=== PATIENT | male | born 1955 | race Hispanic/Latino ===

== ENCOUNTER 2021-08-16 08:58 | Outpatient (CLI) | payer BC, MEDICARE | END 2021-08-16 08:59 | disposition home or self-care (01) | LOC: CSHWCC 08:58 | PROVIDERS: ATTEND Nurse Practitioner Family | DX: E11.621 Type 2 diabetes mellitus with foot ulcer (principal); L97.412 Non-pressure chronic ulcer of right heel and midfoot with fat layer exposed; L97.416 Non-pressure chronic ulcer of right heel and midfoot with bone involvement without evidence of necrosis | CPT/HCPCS: 11043; 97605; 99204; G0463 ==

== ENCOUNTER 2021-08-19 08:37 | Outpatient (CLI) | payer BC, MEDICARE | END 2021-08-19 08:38 | disposition home or self-care (01) | LOC: CSHWCC 08:37 | PROVIDERS: ATTEND Nurse Practitioner Family | DX: E11.621 Type 2 diabetes mellitus with foot ulcer (principal); L97.412 Non-pressure chronic ulcer of right heel and midfoot with fat layer exposed; L97.416 Non-pressure chronic ulcer of right heel and midfoot with bone involvement without evidence of necrosis; R60.0 Localized edema ==

== ENCOUNTER 2021-08-23 08:05 | Outpatient (CLI) | payer BC, MEDICARE | END 2021-08-23 08:06 | disposition home or self-care (01) | LOC: CSHWCC 08:05 | PROVIDERS: ATTEND Nurse Practitioner Family | DX: E11.621 Type 2 diabetes mellitus with foot ulcer (principal); L97.412 Non-pressure chronic ulcer of right heel and midfoot with fat layer exposed; L97.416 Non-pressure chronic ulcer of right heel and midfoot with bone involvement without evidence of necrosis; R60.0 Localized edema | CPT/HCPCS: 97605 ==

== ENCOUNTER 2021-08-26 10:33 | Outpatient (CLI) | payer BC, MEDICARE | END 2021-08-26 10:34 | disposition home or self-care (01) | LOC: CSHWCC 10:33 | PROVIDERS: ATTEND Nurse Practitioner Family | DX: E11.621 Type 2 diabetes mellitus with foot ulcer (principal); L97.412 Non-pressure chronic ulcer of right heel and midfoot with fat layer exposed; L97.416 Non-pressure chronic ulcer of right heel and midfoot with bone involvement without evidence of necrosis | CPT/HCPCS: 11042; 97605 ==

== ENCOUNTER 2021-08-30 10:18 | Outpatient (CLI) | payer BC, MEDICARE | END 2021-08-30 10:19 | disposition home or self-care (01) | LOC: CSHWCC 10:18 | PROVIDERS: ATTEND Nurse Practitioner Family | DX: E11.621 Type 2 diabetes mellitus with foot ulcer (principal); L97.412 Non-pressure chronic ulcer of right heel and midfoot with fat layer exposed; R60.0 Localized edema | CPT/HCPCS: 97605; 99212; G0463 ==

== ENCOUNTER 2021-08-31 10:15 | Outpatient (CLI) | payer BC, MEDICARE | END 2021-08-31 10:16 | disposition home or self-care (01) | LOC: CSHWCC 10:15 | PROVIDERS: ATTEND Nurse Practitioner Family | DX: E11.621 Type 2 diabetes mellitus with foot ulcer (principal); L97.412 Non-pressure chronic ulcer of right heel and midfoot with fat layer exposed; L97.416 Non-pressure chronic ulcer of right heel and midfoot with bone involvement without evidence of necrosis | CPT/HCPCS: 36416; G0277 ==

== ENCOUNTER 2021-09-01 12:57 | Outpatient (CLI) | payer BC, MEDICARE | END 2021-09-01 12:58 | disposition home or self-care (01) | LOC: CSHWCC 12:57 | PROVIDERS: ATTEND Nurse Practitioner Family | DX: E11.621 Type 2 diabetes mellitus with foot ulcer (principal); L97.416 Non-pressure chronic ulcer of right heel and midfoot with bone involvement without evidence of necrosis | CPT/HCPCS: 36416 ==

== ENCOUNTER 2021-09-02 08:08 | Outpatient (CLI) | payer BC, MEDICARE | END 2021-09-02 08:09 | disposition home or self-care (01) | LOC: CSHWCC 08:08 | PROVIDERS: ATTEND Nurse Practitioner Family | DX: E11.621 Type 2 diabetes mellitus with foot ulcer (principal); L97.416 Non-pressure chronic ulcer of right heel and midfoot with bone involvement without evidence of necrosis | CPT/HCPCS: 36416 ==

== ENCOUNTER 2021-09-03 11:00 | Outpatient (CLI) | payer BC, MEDICARE | END 2021-09-03 11:01 | disposition home or self-care (01) | LOC: CSHWCC 11:00 | PROVIDERS: ATTEND Nurse Practitioner Family | DX: E11.621 Type 2 diabetes mellitus with foot ulcer (principal); L97.416 Non-pressure chronic ulcer of right heel and midfoot with bone involvement without evidence of necrosis | CPT/HCPCS: 36416; G0277 ==

== ENCOUNTER 2021-09-06 08:12 | Outpatient (CLI) | payer BC, MEDICARE | END 2021-09-06 08:13 | disposition home or self-care (01) | LOC: CSHWCC 08:12 | PROVIDERS: ATTEND Nurse Practitioner Family | DX: E11.621 Type 2 diabetes mellitus with foot ulcer (principal); L97.416 Non-pressure chronic ulcer of right heel and midfoot with bone involvement without evidence of necrosis; L97.412 Non-pressure chronic ulcer of right heel and midfoot with fat layer exposed; R60.0 Localized edema | CPT/HCPCS: 11042; 36416; 97605; G0277 ==

== ENCOUNTER 2021-09-07 13:30 | Outpatient (CLI) | payer BC, MEDICARE | END 2021-09-07 13:31 | disposition home or self-care (01) | LOC: CSHWCC 13:30 | PROVIDERS: ATTEND Nurse Practitioner Family | DX: E11.621 Type 2 diabetes mellitus with foot ulcer (principal); L97.412 Non-pressure chronic ulcer of right heel and midfoot with fat layer exposed; L97.416 Non-pressure chronic ulcer of right heel and midfoot with bone involvement without evidence of necrosis; R60.0 Localized edema | CPT/HCPCS: 36416; G0277 ==

== ENCOUNTER 2021-09-08 08:09 | Outpatient (CLI) | payer BC, MEDICARE | END 2021-09-08 08:10 | disposition home or self-care (01) | LOC: CSHWCC 08:09 | PROVIDERS: ATTEND Nurse Practitioner Family | DX: E11.621 Type 2 diabetes mellitus with foot ulcer (principal); L97.416 Non-pressure chronic ulcer of right heel and midfoot with bone involvement without evidence of necrosis | CPT/HCPCS: 36416 ==

== ENCOUNTER 2021-09-09 10:35 | Outpatient (CLI) | payer BC, MEDICARE | END 2021-09-09 10:36 | disposition home or self-care (01) | LOC: CSHWCC 10:35 | PROVIDERS: ATTEND Nurse Practitioner Family | DX: E11.621 Type 2 diabetes mellitus with foot ulcer (principal); L97.416 Non-pressure chronic ulcer of right heel and midfoot with bone involvement without evidence of necrosis; L97.412 Non-pressure chronic ulcer of right heel and midfoot with fat layer exposed; R60.0 Localized edema | CPT/HCPCS: 36416; 97605; G0277 ==

== ENCOUNTER 2021-09-15 08:04 | Outpatient (CLI) | payer BC, MEDICARE | END 2021-09-15 08:05 | disposition home or self-care (01) | LOC: CSHWCC 08:04 | PROVIDERS: ATTEND Nurse Practitioner Family | DX: E11.621 Type 2 diabetes mellitus with foot ulcer (principal); L97.812 Non-pressure chronic ulcer of other part of right lower leg with fat layer exposed; L97.416 Non-pressure chronic ulcer of right heel and midfoot with bone involvement without evidence of necrosis; R60.0 Localized edema | CPT/HCPCS: 36416; G0277 ==

== ENCOUNTER 2021-09-16 08:11 | Outpatient (CLI) | payer BC, MEDICARE | END 2021-09-16 08:12 | disposition home or self-care (01) | LOC: CSHWCC 08:11 | PROVIDERS: ATTEND Nurse Practitioner Family | DX: E11.621 Type 2 diabetes mellitus with foot ulcer (principal); L97.416 Non-pressure chronic ulcer of right heel and midfoot with bone involvement without evidence of necrosis; R60.0 Localized edema | CPT/HCPCS: 97605 ==

== ENCOUNTER 2021-09-21 11:18 | Outpatient (CLI) | payer BC, MEDICARE | END 2021-09-21 11:19 | disposition home or self-care (01) | LOC: CSHWCC 11:18 | PROVIDERS: ATTEND Nurse Practitioner Family | DX: E11.621 Type 2 diabetes mellitus with foot ulcer (principal); L97.416 Non-pressure chronic ulcer of right heel and midfoot with bone involvement without evidence of necrosis | CPT/HCPCS: 36416; G0277 ==

== ENCOUNTER 2021-09-22 13:03 | Outpatient (CLI) | payer BC, MEDICARE | END 2021-09-22 13:04 | disposition home or self-care (01) | LOC: CSHWCC 13:03 | PROVIDERS: ATTEND Nurse Practitioner Family | DX: E11.621 Type 2 diabetes mellitus with foot ulcer (principal); L97.416 Non-pressure chronic ulcer of right heel and midfoot with bone involvement without evidence of necrosis | CPT/HCPCS: 36416; G0277 ==

== ENCOUNTER 2021-09-23 08:09 | Outpatient (CLI) | payer BC, MEDICARE | END 2021-09-23 08:10 | disposition home or self-care (01) | LOC: CSHWCC 08:09 | PROVIDERS: ATTEND Nurse Practitioner Family | DX: E11.621 Type 2 diabetes mellitus with foot ulcer (principal); L97.416 Non-pressure chronic ulcer of right heel and midfoot with bone involvement without evidence of necrosis; R60.0 Localized edema | CPT/HCPCS: 11042; 36416; 97607; 99212; G0277; G0463 ==

== ENCOUNTER 2021-09-30 08:06 | Outpatient (CLI) | payer BC, MEDICARE | END 2021-09-30 08:07 | disposition home or self-care (01) | LOC: CSHWCC 08:06 | PROVIDERS: ATTEND Nurse Practitioner Family | DX: E11.621 Type 2 diabetes mellitus with foot ulcer (principal); L97.416 Non-pressure chronic ulcer of right heel and midfoot with bone involvement without evidence of necrosis | CPT/HCPCS: 36416; 97607; G0277 ==

== ENCOUNTER 2021-10-07 08:43 | Outpatient (CLI) | payer BC, MEDICARE | END 2021-10-07 08:44 | disposition home or self-care (01) | LOC: CSHWCC 08:43 | PROVIDERS: ATTEND Nurse Practitioner Family | DX: E11.621 Type 2 diabetes mellitus with foot ulcer (principal); L97.416 Non-pressure chronic ulcer of right heel and midfoot with bone involvement without evidence of necrosis; R60.0 Localized edema | CPT/HCPCS: 97607 ==

== ENCOUNTER 2021-10-14 14:11 | Outpatient (CLI) | payer BC, MEDICARE | END 2021-10-14 14:12 | disposition home or self-care (01) | LOC: CSHWCC 14:11 | PROVIDERS: ATTEND Nurse Practitioner Family | DX: E11.621 Type 2 diabetes mellitus with foot ulcer (principal); L97.416 Non-pressure chronic ulcer of right heel and midfoot with bone involvement without evidence of necrosis; R60.0 Localized edema | CPT/HCPCS: 99213; G0463 ==

== ENCOUNTER 2021-11-01 13:50 | Outpatient (CLI) | payer BC, MEDICARE | END 2021-11-01 13:51 | disposition home or self-care (01) | LOC: CSHWCC 13:50 | PROVIDERS: ATTEND Nurse Practitioner Family | DX: E11.621 Type 2 diabetes mellitus with foot ulcer (principal); L97.416 Non-pressure chronic ulcer of right heel and midfoot with bone involvement without evidence of necrosis; R60.0 Localized edema | CPT/HCPCS: 99213; G0463 ==

== ENCOUNTER 2021-11-15 09:39 | Outpatient (CLI) | payer BC, MEDICARE | END 2021-11-15 09:40 | disposition home or self-care (01) | LOC: CSHWCC 09:39 | PROVIDERS: ATTEND Nurse Practitioner Family | DX: E11.621 Type 2 diabetes mellitus with foot ulcer (principal); L97.416 Non-pressure chronic ulcer of right heel and midfoot with bone involvement without evidence of necrosis; R60.0 Localized edema | CPT/HCPCS: 99212; G0463 ==

== ENCOUNTER 2021-11-17 10:54 | Outpatient (CLI) | payer BC, MEDICARE | END 2021-11-17 10:55 | disposition home or self-care (01) | LOC: CSHWCC 10:54 | PROVIDERS: ATTEND Nurse Practitioner Family | DX: E11.621 Type 2 diabetes mellitus with foot ulcer (principal); L97.416 Non-pressure chronic ulcer of right heel and midfoot with bone involvement without evidence of necrosis; R60.0 Localized edema ==

== ENCOUNTER 2021-11-17 11:00 | Outpatient (CLI) | payer BC, MEDICARE | END 2021-11-17 11:01 | disposition home or self-care (01) | LOC: CSHWCC 11:00 | PROVIDERS: ATTEND Nurse Practitioner Family | DX: E11.621 Type 2 diabetes mellitus with foot ulcer (principal); L97.416 Non-pressure chronic ulcer of right heel and midfoot with bone involvement without evidence of necrosis; R60.0 Localized edema ==